=== PATIENT | female | born 1990 | race Caucasian/White ===

== ENCOUNTER → 2018-04-15 | Day surgery (SDC) | payer OTHER ==
--- NOTE | 2018-04-17 20:16 | PATH ---
Cytology Non-Gynecological Report Patient Name: GILBERTO WEIR [facility]. Rec. #: [id number] /Age/Gender: 1990 (Age: 28) / F Account: [id number] Location: RADIOLOGY INTER Taken: 04/15/2018 Received: 04/15/2018 Reported: 04/17/2018 Physicians: Kenny Garcia M.D. Specimen(s) Received THYROID FNA Clinical History Right thyroid nodule, 1.39 x 1.14 x 1.34 cm Final Diagnosis THYROID, RIGHT, FINE NEEDLE ASPIRATION: SATISFACTORY FOR EVALUATION. BETHES[place] III: ATYPIA OF UNDETERMINED SIGNIFICANCE. SCATTERED CLUSTERS OF ATYPICAL FOLLICULAR CELLS WITH NUCLEAR ENLARGEMENT, FOCAL CLEARING, NUCLEAR GROOVES, AND CROWDING. RARE LYMPHOCYTES ARE NOTED. Comment: Suggest clinical/radiologic correlation and repeat sampling with material for molecular studies (Thyroseq). Electronically Signed Amara Rajput M.D. Gross Description Received are eight direct smears, four of which are air-dried and Diff-Quik stained, and four of which are alcohol fixed and Pap stained. Also received is 20 ml of bloody formalin from which one cellblock is prepared.
== END | disposition home or self-care (01) ==
LOC: JRADIR 08:20
PROVIDERS: ATTEND Internal Medicine Endocrinology, Diabetes & Metabolism
PROC: 0G9H3ZX Drainage of Right Thyroid Gland Lobe, Percutaneous Approach, Diagnostic (ICD-10-PCS; principal; 2018-04-15)
DX: E04.1 Nontoxic single thyroid nodule (principal)
CPT/HCPCS: 76942; 88173; 88305-TC

== ENCOUNTER → 2018-05-13 | Day surgery (SDC) | payer OTHER | END | disposition home or self-care (01) | LOC: JRADIR 09:27 | PROVIDERS: ATTEND Internal Medicine Endocrinology, Diabetes & Metabolism | PROC: 0G9H3ZX Drainage of Right Thyroid Gland Lobe, Percutaneous Approach, Diagnostic (ICD-10-PCS; principal; 2018-05-13) | PROC: BG44ZZZ Ultrasonography of Thyroid Gland (ICD-10-PCS; 2018-05-13) | DX: E04.1 Nontoxic single thyroid nodule (principal); Z53.8 Procedure and treatment not carried out for other reasons | CPT/HCPCS: 10005; 76536-TC ==

== ENCOUNTER 2023-08-08 16:15 | Day surgery (SDC) | payer OTHER ==
[2023-08-08] MEDS: IRON SUCROSE INJECTION 200 MG in SODIUM CHLORIDE 100 ML IVPB ONE (16:10)
[2023-08-08 18:18] VITALS: TEMP 97.8
[2023-08-08 18:21] VITALS: BP 112/75; PULSE 77; RESP 18
== END 2023-08-08 17:15 | disposition home or self-care (01) ==
LOC: J7W 16:15 → JONCNONCHE 16:15
PROVIDERS: ATTEND Internal Medicine Hematology & Oncology
PROC: 3E033GC Introduction of Other Therapeutic Substance into Peripheral Vein, Percutaneous Approach (ICD-10-PCS; principal; 2023-08-08)
DX: E61.1 Iron deficiency (principal)
CPT/HCPCS: 96365; J1756

== ENCOUNTER 2023-08-22 16:10 | Day surgery (SDC) | payer OTHER ==
[2023-08-22] MEDS: IRON SUCROSE INJECTION 200 MG in SODIUM CHLORIDE 100 ML IVPB ONE (16:31)
[2023-08-22 16:45] VITALS: RESP 20; TEMP 97.7
[2023-08-22 17:24] VITALS: BP 113/69; PULSE 87
== END 2023-08-22 17:30 | disposition home or self-care (01) ==
LOC: JONCNONCHE 16:10 → J7W 16:10 → JONCNONCHE 17:30
PROVIDERS: ATTEND Internal Medicine Hematology & Oncology
PROC: 3E033GC Introduction of Other Therapeutic Substance into Peripheral Vein, Percutaneous Approach (ICD-10-PCS; principal; 2023-08-22)
DX: D50.9 Iron deficiency anemia, unspecified (principal)
CPT/HCPCS: 96365; J1756

== ENCOUNTER 2023-08-29 16:05 | Day surgery (SDC) | payer OTHER ==
[2023-08-29] MEDS: IRON SUCROSE INJECTION 200 MG in SODIUM CHLORIDE 100 ML IVPB ONE (16:23)
[2023-08-29 17:22] VITALS: RESP 18; TEMP 97.9
[2023-08-29 17:26] VITALS: BP 114/79; PULSE 85
== END 2023-08-29 17:45 | disposition home or self-care (01) ==
LOC: JONCNONCHE 16:05 → J7W 16:05 → JONCNONCHE 17:45
PROVIDERS: ATTEND Internal Medicine Hematology & Oncology
PROC: 3E033GC Introduction of Other Therapeutic Substance into Peripheral Vein, Percutaneous Approach (ICD-10-PCS; principal; 2023-08-29)
DX: E61.1 Iron deficiency (principal)
CPT/HCPCS: 96365; J1756